=== PATIENT | female | born 1970 | race Caucasian/White ===

== ENCOUNTER 2017-01-05 09:21 | Day surgery (SDC) | payer OTHER ==
[2017-01-05 09:42] VITALS: BMI 40.4
--- NOTE | 2017-01-05 10:20 | CP.SDSHP ---
Same Day Surgery H & P - History Proposed Procedure: EGD Pre-Op Diagnosis: SEE NOTES - Previous Medical/Surgical History Misc: Other Pain: 4.Moderate Pain - Allergies Allergies: Allergies No Known Allergies Allergy (Unverified 10/16/12 17:19) - Physical Exam General Appearance: N Vital Signs: Vital Signs 01/05/17 10:08 Temperature 97.9 F Pulse Rate 80 Respiratory 20 Rate Blood Pressure 132/88 O2 Sat by Pulse 99 Oximetry Mental Status: Alert & Oriented x3 Neuro: WNL Heart: WNL Lungs: WNL GI: Other - {Optional Preform as Required} Breast: WNL Abdomen: Other Rectal: Other Integument: WNL : WNL Ortho: WNL ENT: WNL - Impression Pt. Evaluated Today:Candidate for Anesthesia & Procedure: Yes - Date & Time Time: 10:20 Short Stay Discharge - Short Stay Discharge Admitting Diagnosis/Reason for Visit: DYSPEPSIA Disposition: HOME/ ROUTINE
--- NOTE | 2017-01-05 10:23 | CP.SDSHP ---
Same Day Surgery H & P - History Proposed Procedure: EGD Pre-Op Diagnosis: SEE NOTES - Previous Medical/Surgical History Cardiac: Hypertension Endocrine/Metabolic: Thyroid Disease, Diabetes, Other Misc: Other Pain: 4.Moderate Pain - Allergies Allergies: Allergies No Known Allergies Allergy (Unverified 10/16/12 17:19) - Physical Exam General Appearance: N Vital Signs: Vital Signs 01/05/17 10:08 Temperature 97.9 F Pulse Rate 80 Respiratory 20 Rate Blood Pressure 132/88 O2 Sat by Pulse 99 Oximetry Mental Status: Alert & Oriented x3 Neuro: WNL Heart: Other Lungs: WNL GI: Other - {Optional Preform as Required} Breast: WNL Abdomen: Other Rectal: Other Integument: WNL : WNL Ortho: Other ENT: WNL - Impression Pt. Evaluated Today:Candidate for Anesthesia & Procedure: Yes - Date & Time Time: 10:23 Short Stay Discharge - Short Stay Discharge Admitting Diagnosis/Reason for Visit: DYSPEPSIA Disposition: HOME/ ROUTINE
[2017-01-05] MEDS ORDERED: Lactated Ringer's 500 ML IV ONE ×3 (10:24)
[2017-01-05] MEDS ORDERED: Belladonna-Phenobarbital PO STA (10:25)
[2017-01-05] MEDS ORDERED: Pantoprazole 40 mg EC Tab PO STA (10:26)
[2017-01-05] MEDS ORDERED: Propofol 10 mg/ml Inj (20 ML) ONE (10:31)
[2017-01-05] MEDS ORDERED: Lactated Ringer's 500 ML IV SCH (10:45)
[2017-01-05 12:20] VITALS: BP 112/82; PULSE 72; RESP 18; TEMP 97; O2SAT 97
== END 2017-01-05 11:55 | disposition home or self-care (01) ==
LOC: C.ENDO 09:21
PROVIDERS: ATTEND Specialist
DX: K29.80 Duodenitis without bleeding (principal); K44.9 Diaphragmatic hernia without obstruction or gangrene; K29.50 Unspecified chronic gastritis without bleeding
CPT/HCPCS: 43239; 84703; 88305; J2704; J7120